=== PATIENT | female | born 1950 | race Caucasian/White ===

== ENCOUNTER 2020-03-16 07:54 | Inpatient (IN) | payer MEDICARE, BC ==
[~2020-03-16] VITALS: Ht 165.1 cm; Wt 68.0 kg
[~2020-03-16 07:54] MED LIST: ACET-458 PO; ACET-76 PO; ALBU18HF INH; BACITRACIN 50,000 UNIT ONE; CALC200T3 PO; CEPH-368 PO; ESTR0.5T PO; FLUT9.9S NS; LEVO100T5 PO; LISI-167 PO; MEDR2.5T30 PO; METH750T87 PO; OMEP20TA62 PO; OXYC5TAB3 PO
[2020-03-16] MEDS ORDERED: FENTANYL PF 250 MCG/5ML ONE (10:05)
[2020-03-16] MEDS ORDERED: MIDAZOLAM 1 MG/ML, 2ML ONE (10:05)
[2020-03-16] MEDS ORDERED: PROPOFOL 50 ML ONE (10:05)
[2020-03-16] MEDS ORDERED: PROPOFOL 10 MG/ML, 20ML ONE (10:06)
[2020-03-16] MEDS ORDERED: LIDOCAINE-MPF 2% ,5ML ONE (10:06)
[2020-03-16] MEDS ORDERED: ROCURONIUM 10MG/ML,5ML ONE (10:06)
[2020-03-16 10:41] VITALS: BP 146/68
[2020-03-16] MEDS ORDERED: LACTATED RINGERS 1,000 ML IV SCH (10:54)
[2020-03-16] MEDS ORDERED: ACETAMINOPHEN 500 MG TABLET ONE (10:59)
[2020-03-16] MEDS ORDERED: GABAPENTIN 300 MG CAPSULE ONE (10:59)
[2020-03-16] MEDS ORDERED: CHLORHEXIDINE 15 ML UDC ONE (11:00)
[2020-03-16] MEDS ORDERED: ACETAMINOPHEN 500 MG TABLET PO ONE (11:00)
[2020-03-16] MEDS ORDERED: CHLORHEXIDINE 15 ML UDC MM ONE (11:00)
[2020-03-16] MEDS ORDERED: OXYcodone IR 5MG TABLET PO ONE (11:00)
[2020-03-16] MEDS ORDERED: GABAPENTIN 300 MG CAPSULE PO ONE (11:00)
[2020-03-16] MEDS ORDERED: hydrALAzine 20 MG/ML, 1ML IV PRN (12:00)
[2020-03-16] MEDS ORDERED: LABETALOL 5MG/ML, 20ML IV PRN ×2 (12:00→15:30)
[2020-03-16] MEDS ORDERED: MEPERIDINE/PF 25MG/0.5ML IVPush PRN (12:00)
[2020-03-16] MEDS ORDERED: ONDANSETRON 2MG/ML, 2ML IVPush PRN (12:00)
[2020-03-16] MEDS ORDERED: LORazepam 2 MG/ML, 1ML IVPush PRN (12:00)
[2020-03-16] MEDS ORDERED: OXYcodone 5 MG/5 ML ORAL.SOL UDC PO PRN (12:00)
[2020-03-16] MEDS ORDERED: HYDROmorphone 1 MG/ML, 1ML INJ IVPush PRN (12:00)
[2020-03-16] MEDS ORDERED: CEFAZOLIN 1,000 MG ONE ×2 (12:52)
[2020-03-16] MEDS ORDERED: DEXAMETHASONE 4 MG/ML, 1ML ONE ×2 (12:52)
[2020-03-16] MEDS ORDERED: NEOSTIGMINE 1 MG/ML, 10ML ONE (12:52)
[2020-03-16] MEDS ORDERED: ONDANSETRON 2MG/ML, 2ML ONE (12:52)
[2020-03-16] MEDS ORDERED: HEPARIN 1,000 UNITS/ML, 30ML IVPB ONE (13:00)
[2020-03-16] MEDS ORDERED: FENTANYL PF 100 MCG/2ML ONE (13:28)
[2020-03-16] MEDS ORDERED: OXYcodone 5 MG/5 ML ORAL.SOL UDC ONE (13:28)
[2020-03-16] MEDS ORDERED: METHOCARBAMOL 750 MG TABLET ONE (13:28)
[2020-03-16] MEDS: FENTANYL PF 100 MCG/2ML IV PRN ×3 (13:34→14:01)
[2020-03-16] MEDS ORDERED: METHOCARBAMOL 750 MG TABLET PO STA (13:37)
[2020-03-16] MEDS ORDERED: PROMETHAZINE 25 MG/ML, 1ML IM PRN (15:30)
[2020-03-16] MEDS: D5%-0.9% NACL+KCL 20MEQ 1,000 ML IV SCH ×2 (15:30→20:02)
[2020-03-16] MEDS ORDERED: DIPHENHYDRAMINE 50 MG/ML, 1ML IVPush PRN (15:30)
[2020-03-16] MEDS ORDERED: DIPHENHYDRAMINE 50 MG/ML, 1ML IM PRN (15:30)
[2020-03-16] MEDS ORDERED: ONDANSETRON 2MG/ML, 2ML IV PRN (15:30)
[2020-03-16] MEDS ORDERED: HYDROcodone/APAP 10/325 MG TABLET PO PRN (15:30)
[2020-03-16] MEDS ORDERED: BISACODYL 10 MG SUPP PR PRN (15:30)
[2020-03-16] MEDS ORDERED: HYDROmorphone 2 MG/ML, 1ML IVPush PRN (15:30)
[2020-03-16] MEDS: HYDROcodone/APAP 5/325 TABLET PO PRN (20:01)
[2020-03-16] MEDS: OMEPRAZOLE 20 MG CAPSULE.DR PO SCH (20:02)
[2020-03-16] MEDS: MEDROXYPROGESTERONE ACETATE 2.5 MG TABLET PO SCH (20:02)
[2020-03-16] MEDS: CEFAZOLIN PMX 1GM/50ML 50 ML IVPB SCH (20:02)
[2020-03-16] MEDS: ESTRADIOL 1 MG TABLET PO SCH (20:02)
[2020-03-16 20:10] VITALS: BP 138/71
[2020-03-16] MEDS: LISINOPRIL 10 MG TABLET PO SCH (21:40)
[2020-03-17] MEDS: HYDROcodone/APAP 5/325 TABLET PO PRN ×3 (00:03→09:28)
[2020-03-17 00:04] VITALS: BP 140/78
[2020-03-17 03:50] VITALS: BP 100/61
[2020-03-17] MEDS: CEFAZOLIN PMX 1GM/50ML 50 ML IVPB SCH ×2 (04:02→22:11)
[2020-03-17] MEDS: DIPHENHYDRAMINE 25 MG CAPSULE PO PRN ×2 (04:04→23:56)
[2020-03-17 05:24] LABS: ANION GAP 8 mmol/L (5-15); CALCIUM 8.3 mg/dL (8.5-10.1); CHLORIDE 106 mmol/L (98-107); CREATININE 0.71 mg/dL (0.55-1.02)
[2020-03-17 05:27] LABS: BASOPHILS % (AUTO) 0 % (0-1); EOSINOPHILS # (AUTO) 0.03 x10^3/uL (0-0.4); EOSINOPHILS % (AUTO) 0 % (1-7); LYMPHOCYTES # (AUTO) 0.76 x10^3/uL (1-3.4); LYMPHOCYTES % (AUTO) 10 % (22-44); MD NO; MEAN CORPUSCULAR HGB CONC 33.4 g/dL (32.4-35.8); MEAN CORPUSCULAR VOLUME 92.9 fL (80-100); MEAN PLATELET VOLUME 7.8 fL (7.4-10.4); MONOCYTES % (AUTO) 6 % (2-9); NEUTROPHILS # (AUTO) 6.71 x10^3/uL (1.8-6.8); NEUTROPHILS % (AUTO) 84 % (42-75); PLATELET COUNT 204 x10^3/uL (130-400); RED BLOOD COUNT 3.84 x10^6/uL (3.82-5.3); RED CELL DISTRIBUTION WIDTH 14.8 % (9.6-15.2)
[2020-03-17] MEDS: D5%-0.9% NACL+KCL 20MEQ 1,000 ML IV SCH ×2 (05:52→22:10)
[2020-03-17] MEDS: LEVOTHYROXINE 100 MCG TABLET PO SCH (05:53)
[2020-03-17] MEDS ORDERED: BACITRACIN 50,000 UNIT ONE (06:15)
[2020-03-17] MEDS ORDERED: BUPIVACAINE/PF-EPI 0.5% 1:200K ONE (06:15)
[2020-03-17] MEDS ORDERED: VANCOMYCIN 1,000 MG ONE (06:15)
[2020-03-17 06:35] VITALS: BP 90/56
[2020-03-17] MEDS ORDERED: LISINOPRIL 10 MG TABLET PO SCH (09:00)
[2020-03-17] MEDS: SENNA/DOCUSATE TABLET PO SCH (09:00)
[2020-03-17] MEDS ORDERED: MIDAZOLAM 1 MG/ML, 2ML ONE (11:33)
[2020-03-17] MEDS ORDERED: FENTANYL PF 250 MCG/5ML ONE ×2 (11:33→15:15)
[2020-03-17] MEDS ORDERED: DEXAMETHASONE 4 MG/ML, 1ML ONE (11:36)
[2020-03-17] MEDS ORDERED: ROCURONIUM 10MG/ML,5ML ONE (11:36)
[2020-03-17] MEDS ORDERED: CEFAZOLIN 1,000 MG ONE (11:36)
[2020-03-17] MEDS ORDERED: ONDANSETRON 2MG/ML, 2ML ONE (11:36)
[2020-03-17] MEDS ORDERED: PROPOFOL 10 MG/ML, 20ML ONE (11:36)
[2020-03-17] MEDS ORDERED: PROPOFOL 100 ML ONE (11:37)
[2020-03-17] MEDS ORDERED: GLYCOPYRROLATE 0.2MG/1ML, 5ML ONE ×2 (11:45→14:17)
[2020-03-17 12:20] VITALS: BP 110/65
[2020-03-17] MEDS ORDERED: CHLORHEXIDINE 15 ML UDC MM ONE (13:00)
[2020-03-17] MEDS ORDERED: GABAPENTIN 300 MG CAPSULE PO ONE (13:00)
[2020-03-17] MEDS ORDERED: ACETAMINOPHEN 500 MG TABLET PO ONE (13:00)
[2020-03-17] MEDS ORDERED: GABAPENTIN 300 MG CAPSULE ONE (13:09)
[2020-03-17] MEDS ORDERED: ACETAMINOPHEN 500 MG TABLET ONE (13:09)
[2020-03-17] MEDS ORDERED: CHLORHEXIDINE 15 ML UDC ONE (13:09)
[2020-03-17] MEDS ORDERED: HYDROmorphone 1 MG/ML, 1ML INJ IVPush PRN (14:00)
[2020-03-17] MEDS ORDERED: OXYcodone 5 MG/5 ML ORAL.SOL UDC PO PRN (14:00)
[2020-03-17] MEDS ORDERED: morphine SULFATE 10 MG/ML, 1ML IVPush PRN (14:00)
[2020-03-17] MEDS ORDERED: HALOPERIDOL 5 MG/ML IV PRN (14:00)
[2020-03-17] MEDS ORDERED: MEPERIDINE/PF 25MG/0.5ML IVPush PRN (14:00)
[2020-03-17] MEDS ORDERED: METHOCARBAMOL 1,000 MG in DEXTROSE 5% 100 ML IV PRN (14:00)
[2020-03-17] MEDS ORDERED: PROMETHAZINE 25 MG/ML, 1ML IVPush PRN (14:00)
[2020-03-17] MEDS ORDERED: hydrALAzine 20 MG/ML, 1ML IV PRN (14:00)
[2020-03-17] MEDS ORDERED: DIAZEPAM 5 MG/ML, 2ML IVPush PRN (14:00)
[2020-03-17] MEDS ORDERED: LABETALOL 5MG/ML, 20ML IV PRN (14:00)
[2020-03-17] MEDS ORDERED: NEOSTIGMINE 1 MG/ML, 10ML ONE (14:17)
[2020-03-17] MEDS ORDERED: BUPIVACAINE/PF-EPI 0.5% 1:200K INFIL ONE (15:00)
[2020-03-17] MEDS ORDERED: BACITRACIN 50,000 UNIT IRRIG ONE (15:00)
[2020-03-17] MEDS ORDERED: OXYcodone 5 MG/5 ML ORAL.SOL UDC ONE (16:35)
[2020-03-17] MEDS: FENTANYL PF 100 MCG/2ML IV PRN ×2 (16:45→17:15)
[2020-03-17] MEDS ORDERED: FENTANYL PF 100 MCG/2ML ONE (16:56)
[2020-03-17] MEDS ORDERED: OXYcodone IR 5MG TABLET PO PRN (19:00)
[2020-03-17 19:48] VITALS: BP 143/71
[2020-03-17] MEDS: OMEPRAZOLE 20 MG CAPSULE.DR PO SCH (22:11)
[2020-03-17] MEDS: LISINOPRIL 10 MG TABLET PO SCH (22:13)
[2020-03-17] MEDS: ESTRADIOL 1 MG TABLET PO SCH (22:13)
[2020-03-17] MEDS: MEDROXYPROGESTERONE ACETATE 2.5 MG TABLET PO SCH (22:13)
[2020-03-18 00:17] VITALS: BP 127/67
[2020-03-18] MEDS: HYDROcodone/APAP 5/325 TABLET PO PRN ×4 (02:26→21:14)
[2020-03-18 04:02] VITALS: BP 114/58
[2020-03-18 04:54] LABS: BASOPHILS # (AUTO) 0.01 x10^3/uL (0-0.1); BASOPHILS % (AUTO) 0 % (0-1); EOSINOPHILS % (AUTO) 0 % (1-7); LYMPHOCYTES # (AUTO) 0.77 x10^3/uL (1-3.4); LYMPHOCYTES % (AUTO) 12 % (22-44); MD NO; MEAN CORPUSCULAR HEMOGLOBIN 31.1 pg (27.0-34.8); MEAN CORPUSCULAR HGB CONC 33.1 g/dL (32.4-35.8); MEAN CORPUSCULAR VOLUME 93.9 fL (80-100); MEAN PLATELET VOLUME 7.9 fL (7.4-10.4); MONOCYTES # (AUTO) 0.59 x10^3/uL (0.2-0.8); MONOCYTES % (AUTO) 9 % (2-9); NEUTROPHILS # (AUTO) 5.04 x10^3/uL (1.8-6.8); NEUTROPHILS % (AUTO) 79 % (42-75); PLATELET COUNT 175 x10^3/uL (130-400); RED BLOOD COUNT 3.44 x10^6/uL (3.82-5.3); RED CELL DISTRIBUTION WIDTH 15.1 % (9.6-15.2)
[2020-03-18 05:02] LABS: ANION GAP 3 mmol/L (5-15); CALCIUM 7.7 mg/dL (8.5-10.1); CHLORIDE 110 mmol/L (98-107); CREATININE 0.67 mg/dL (0.55-1.02)
[2020-03-18] MEDS: LEVOTHYROXINE 100 MCG TABLET PO SCH (05:53)
[2020-03-18] MEDS: CEFAZOLIN PMX 1GM/50ML 50 ML IVPB SCH (05:53)
[2020-03-18] MEDS: D5%-0.9% NACL+KCL 20MEQ 1,000 ML IV SCH ×2 (05:54→16:00)
[2020-03-18] MEDS ORDERED: ENOXAPARIN 40 MG/0.4 ML SQ SCH (06:00)
[2020-03-18 08:00] VITALS: BP 105/61
[2020-03-18] MEDS: MAGNESIUM HYDROXIDE 8%, 30ML UDC PO PRN (10:22)
[2020-03-18] MEDS: METHOCARBAMOL 750 MG TABLET PO PRN ×2 (10:22→22:30)
[2020-03-18] MEDS: SENNA/DOCUSATE TABLET PO SCH (10:22)
[2020-03-18 12:41] VITALS: BP 128/68
[2020-03-18 19:20] VITALS: BP 116/63
[2020-03-18] MEDS: ESTRADIOL 1 MG TABLET PO SCH (21:12)
[2020-03-18] MEDS: OMEPRAZOLE 20 MG CAPSULE.DR PO SCH (21:12)
[2020-03-18] MEDS: MEDROXYPROGESTERONE ACETATE 2.5 MG TABLET PO SCH (21:12)
[2020-03-18] MEDS: LISINOPRIL 10 MG TABLET PO SCH (21:14)
[2020-03-18] MEDS: DIPHENHYDRAMINE 25 MG CAPSULE PO PRN (22:30)
[2020-03-19 00:12] VITALS: BP 116/63
[2020-03-19] MEDS: HYDROcodone/APAP 5/325 TABLET PO PRN ×5 (01:40→23:28)
[2020-03-19] MEDS: D5%-0.9% NACL+KCL 20MEQ 1,000 ML IV SCH ×3 (01:40→22:00)
[2020-03-19 05:05] LABS: BASOPHILS # (AUTO) 0.01 x10^3/uL (0-0.1); BASOPHILS % (AUTO) 0 % (0-1); EOSINOPHILS % (AUTO) 0 % (1-7); LYMPHOCYTES # (AUTO) 1.08 x10^3/uL (1-3.4); LYMPHOCYTES % (AUTO) 19 % (22-44); MD NO; MEAN CORPUSCULAR HGB CONC 33.1 g/dL (32.4-35.8); MEAN CORPUSCULAR VOLUME 93.6 fL (80-100); MEAN PLATELET VOLUME 7.6 fL (7.4-10.4); MONOCYTES # (AUTO) 0.51 x10^3/uL (0.2-0.8); MONOCYTES % (AUTO) 9 % (2-9); NEUTROPHILS % (AUTO) 71 % (42-75); PLATELET COUNT 186 x10^3/uL (130-400); RED BLOOD COUNT 3.46 x10^6/uL (3.82-5.3); RED CELL DISTRIBUTION WIDTH 14.9 % (9.6-15.2)
[2020-03-19 05:13] LABS: ANION GAP 7 mmol/L (5-15); CALCIUM 7.9 mg/dL (8.5-10.1); CHLORIDE 107 mmol/L (98-107); CREATININE 0.55 mg/dL (0.55-1.02)
[2020-03-19] MEDS: LEVOTHYROXINE 100 MCG TABLET PO SCH (06:04)
[2020-03-19] MEDS ORDERED: VANCOMYCIN 1,000 MG ONE (06:16)
[2020-03-19] MEDS ORDERED: THROMBIN 5,000 UNIT VIAL TP ONE (06:16)
[2020-03-19] MEDS ORDERED: BUPIVACAINE/PF-EPI 0.5% 1:200K ONE (06:16)
[2020-03-19] MEDS ORDERED: BACITRACIN 50,000 UNIT ONE (06:16)
[2020-03-19] MEDS: METHOCARBAMOL 750 MG TABLET PO PRN ×2 (06:44→22:47)
[2020-03-19 06:57] VITALS: BP 124/68
[2020-03-19] MEDS: SENNA/DOCUSATE TABLET PO SCH (08:17)
[2020-03-19] MEDS ORDERED: FENTANYL PF 250 MCG/5ML ONE (11:32)
[2020-03-19] MEDS ORDERED: MIDAZOLAM 1 MG/ML, 2ML ONE (11:32)
[2020-03-19] MEDS ORDERED: CHLORHEXIDINE 15 ML UDC ONE (12:06)
[2020-03-19] MEDS ORDERED: PROPOFOL 10 MG/ML, 20ML ONE (12:35)
[2020-03-19] MEDS ORDERED: ONDANSETRON 2MG/ML, 2ML ONE (12:35)
[2020-03-19] MEDS ORDERED: DEXAMETHASONE 4 MG/ML, 1ML ONE (12:35)
[2020-03-19] MEDS ORDERED: SUCCINYLCHOLINE 20 MG/ML, 10ML ONE (12:35)
[2020-03-19] MEDS ORDERED: ROCURONIUM 10MG/ML,5ML ONE (12:35)
[2020-03-19] MEDS ORDERED: EPHEDRINE 50 MG/ML, 1ML ONE (12:35)
[2020-03-19] MEDS ORDERED: LIDOCAINE-MPF 2% ,5ML ONE (12:35)
[2020-03-19] MEDS ORDERED: CEFAZOLIN 1,000 MG ONE (12:35)
[2020-03-19] MEDS ORDERED: OXYcodone 5 MG/5 ML ORAL.SOL UDC PO PRN (13:00)
[2020-03-19] MEDS ORDERED: MEPERIDINE/PF 25MG/0.5ML IVPush PRN (13:00)
[2020-03-19] MEDS ORDERED: ACETAMINOPHEN 325 MG TABLET PO PRN (13:00)
[2020-03-19] MEDS ORDERED: ALBUTEROL SULFATE 2.5 MG/3 ML NPPB PRN (13:00)
[2020-03-19] MEDS ORDERED: HYDROmorphone 1 MG/ML, 1ML INJ IVPush PRN (13:00)
[2020-03-19] MEDS ORDERED: LABETALOL 5MG/ML, 20ML IV PRN (13:00)
[2020-03-19] MEDS ORDERED: hydrALAzine 20 MG/ML, 1ML IV PRN (13:00)
[2020-03-19] MEDS ORDERED: PROMETHAZINE 25 MG/ML, 1ML IVPush PRN (13:00)
[2020-03-19] MEDS ORDERED: FENTANYL PF 100 MCG/2ML IV PRN (13:00)
[2020-03-19] MEDS ORDERED: BUPIVACAINE LIPOSOME/PF 10ML INFIL ONE (13:02)
[2020-03-19] MEDS ORDERED: HYDROcodone/APAP 7.5-325MG/15ML UDC ONE (14:17)
[2020-03-19] MEDS ORDERED: HYDROcodone/APAP 7.5-325MG/15ML UDC PO PRN (14:30)
[2020-03-19] MEDS ORDERED: METHOCARBAMOL 1,000 MG in DEXTROSE 5% 100 ML IV ONE (15:00)
[2020-03-19] MEDS ORDERED: DIPHENHYDRAMINE 50 MG/ML, 1ML IVPush PRN (15:50)
[2020-03-19] MEDS ORDERED: DIPHENHYDRAMINE 50 MG/ML, 1ML IM PRN (15:51)
[2020-03-19] MEDS ORDERED: DIPHENHYDRAMINE 25 MG CAPSULE PO PRN (15:51)
[2020-03-19 15:55] VITALS: BP 157/82
[2020-03-19] MEDS ORDERED: ONDANSETRON 2MG/ML, 2ML IV PRN (16:00)
[2020-03-19] MEDS ORDERED: KETOROLAC 30 MG/1 ML IV PRN (16:00)
[2020-03-19] MEDS ORDERED: OXYcodone IR 5MG TABLET PO PRN (16:00)
[2020-03-19] MEDS ORDERED: HYDROmorphone 2MG TABLET PO PRN (16:00)
[2020-03-19] MEDS: CEFAZOLIN PMX 1GM/50ML 50 ML IVPB SCH (17:10)
[2020-03-19 19:18] VITALS: BP 139/84
[2020-03-19] MEDS: OMEPRAZOLE 20 MG CAPSULE.DR PO SCH (21:30)
[2020-03-19] MEDS: LISINOPRIL 10 MG TABLET PO SCH (21:30)
[2020-03-19] MEDS: ESTRADIOL 1 MG TABLET PO SCH (21:30)
[2020-03-19] MEDS: MEDROXYPROGESTERONE ACETATE 2.5 MG TABLET PO SCH (21:30)
[2020-03-19] MEDS: DIPHENHYDRAMINE 25 MG CAPSULE PO PRN (22:47)
[2020-03-20] MEDS: CEFAZOLIN PMX 1GM/50ML 50 ML IVPB SCH (00:50)
[2020-03-20 00:56] VITALS: BP 129/72
[2020-03-20 03:34] VITALS: BP 118/58
[2020-03-20] MEDS: HYDROcodone/APAP 5/325 TABLET PO PRN ×4 (03:39→21:06)
[2020-03-20] MEDS: METHOCARBAMOL 750 MG TABLET PO PRN ×3 (04:40→21:05)
[2020-03-20 06:02] LABS: BASOPHILS # (AUTO) 0.01 x10^3/uL (0-0.1); BASOPHILS % (AUTO) 0 % (0-1); EOSINOPHILS % (AUTO) 0 % (1-7); LYMPHOCYTES # (AUTO) 0.65 x10^3/uL (1-3.4); LYMPHOCYTES % (AUTO) 11 % (22-44); MD NO; MEAN CORPUSCULAR HEMOGLOBIN 31.3 pg (27.0-34.8); MEAN CORPUSCULAR HGB CONC 33.4 g/dL (32.4-35.8); MEAN CORPUSCULAR VOLUME 93.7 fL (80-100); MONOCYTES # (AUTO) 0.48 x10^3/uL (0.2-0.8); MONOCYTES % (AUTO) 8 % (2-9); NEUTROPHILS # (AUTO) 4.58 x10^3/uL (1.8-6.8); NEUTROPHILS % (AUTO) 80 % (42-75); PLATELET COUNT 186 x10^3/uL (130-400); RED BLOOD COUNT 3.29 x10^6/uL (3.82-5.3); RED CELL DISTRIBUTION WIDTH 14.7 % (9.6-15.2)
[2020-03-20 06:08] LABS: ANION GAP 6 mmol/L (5-15); CALCIUM 7.7 mg/dL (8.5-10.1); CHLORIDE 105 mmol/L (98-107)
[2020-03-20 06:09] LABS: CREATININE 0.57 mg/dL (0.55-1.02)
[2020-03-20] MEDS: CEPHALEXIN 500 MG CAPSULE PO SCH ×4 (06:23→21:05)
[2020-03-20] MEDS: LEVOTHYROXINE 100 MCG TABLET PO SCH (06:23)
[2020-03-20 06:40] VITALS: BP 110/59
[2020-03-20] MEDS: D5%-0.9% NACL+KCL 20MEQ 1,000 ML IV SCH ×2 (07:32→17:45)
[2020-03-20] MEDS: MAGNESIUM HYDROXIDE 8%, 30ML UDC PO PRN (08:27)
[2020-03-20] MEDS: SENNA/DOCUSATE TABLET PO SCH (08:28)
[2020-03-20] MEDS: ENOXAPARIN 40 MG/0.4 ML SQ SCH (12:24)
[2020-03-20 14:15] VITALS: BP 108/62
[2020-03-20 19:46] VITALS: BP 148/62
[2020-03-20] MEDS: OMEPRAZOLE 20 MG CAPSULE.DR PO SCH (21:05)
[2020-03-20] MEDS: ESTRADIOL 1 MG TABLET PO SCH (21:05)
[2020-03-20] MEDS: MEDROXYPROGESTERONE ACETATE 2.5 MG TABLET PO SCH (21:05)
[2020-03-20] MEDS: LISINOPRIL 10 MG TABLET PO SCH (21:05)
[2020-03-20] MEDS: DIPHENHYDRAMINE 25 MG CAPSULE PO PRN (22:55)
[2020-03-21 01:07] VITALS: BP 120/60
[2020-03-21] MEDS: HYDROcodone/APAP 5/325 TABLET PO PRN ×4 (01:07→15:02)
[2020-03-21] MEDS: METHOCARBAMOL 750 MG TABLET PO PRN ×2 (03:06→08:51)
[2020-03-21] MEDS: D5%-0.9% NACL+KCL 20MEQ 1,000 ML IV SCH (04:00)
[2020-03-21] MEDS: CEPHALEXIN 500 MG CAPSULE PO SCH ×2 (05:58→10:43)
[2020-03-21] MEDS: LEVOTHYROXINE 100 MCG TABLET PO SCH (05:58)
[2020-03-21 07:25] VITALS: BP 165/64
[2020-03-21] MEDS: SENNA/DOCUSATE TABLET PO SCH (08:52)
[2020-03-21] MEDS ORDERED: HYDR-3240 PO (09:01)
[2020-03-21] MEDS ORDERED: METH750T87 PO (09:02)
[2020-03-21] MEDS ORDERED: CEPH-368 PO (09:02)
[2020-03-21 13:13] VITALS: BP 119/65
[2020-03-21] MEDS: ENOXAPARIN 40 MG/0.4 ML SQ SCH (13:16)
== END 2020-03-21 15:48 | disposition home or self-care (01) | DRG 454 ==
LOC: ORIP 07:54 → UNDOADMIN 07:54 → ORIP 09:58 → 4NE 14:22 → DCLOUNGE 03-21 15:35
PROVIDERS: ADMIT Neurological Surgery; ATTEND Neurological Surgery
PROC: 0SG30A0 Fusion of Lumbosacral Joint with Interbody Fusion Device, Anterior Approach, Anterior Column, Open Approach (ICD-10-PCS; 2020-03-16)
PROC: 0SB40ZZ Excision of Lumbosacral Disc, Open Approach (ICD-10-PCS; principal; 2020-03-16 13:00)
PROC: 0QB00ZZ Excision of Lumbar Vertebra, Open Approach (ICD-10-PCS; 2020-03-17)
PROC: 0QB10ZZ Excision of Sacrum, Open Approach (ICD-10-PCS; 2020-03-17)
PROC: 0SG00A0 Fusion of Lumbar Vertebral Joint with Interbody Fusion Device, Anterior Approach, Anterior Column, Open Approach (ICD-10-PCS; 2020-03-17)
PROC: 0SG00J1 Fusion of Lumbar Vertebral Joint with Synthetic Substitute, Posterior Approach, Posterior Column, Open Approach (ICD-10-PCS; 2020-03-19)
PROC: 0SG3071 Fusion of Lumbosacral Joint with Autologous Tissue Substitute, Posterior Approach, Posterior Column, Open Approach (ICD-10-PCS; 2020-03-19)
PROC: 4A11X4G Monitoring of Peripheral Nervous Electrical Activity, Intraoperative, External Approach (ICD-10-PCS; 2020-03-19)
DX: M51.16 Intervertebral disc disorders with radiculopathy, lumbar region (principal); M48.57XA Collapsed vertebra, not elsewhere classified, lumbosacral region, initial encounter for fracture; G89.29 Other chronic pain; M43.16 Spondylolisthesis, lumbar region; M47.9 Spondylosis, unspecified; M48.061 Spinal stenosis, lumbar region without neurogenic claudication; M51.17 Intervertebral disc disorders with radiculopathy, lumbosacral region
CPT/HCPCS: 36415; 72100; 72131; 74018; 80048; 85025; 95938; 95941; C1713; C1776; G0378; J0690; J1100; J1644; J1650; J1885; J2250; J2405; J2704; J2710; J3010; J3370; C1760; C1763; C1769; C1889; J0330; J2800; J3480; Q0163